=== PATIENT | female | born 1980 | race Caucasian/White ===

== ENCOUNTER 2018-01-23 08:27 | Day surgery (SDC) | payer OTHER ==
[~2018-01-23 08:27] MED LIST: Lactated Ringers 1,000 ML IV SCH; Lidocaine 1% 4 ML ONE; Lidocaine 1%/Sod Bicarbonate in NS 8.4% 1 ML Syringe IDERM PRN; Midazolam 1 MG/ML 2 ML SDV ONE; Propofol 200 MG/20 ML SDV ONE; Sodium Chloride 0.9% 10 ML Syringe FLUSH PRN; fentaNYL 100 MCG/2 ML SDV ONE
--- NOTE | 2018-01-23 09:18 | PCM.PREANE ---
Preanesthetic Assessment - Procedure Proposed Procedure: right Carpal tunnel release with left carpal tunnel injection - Anesthesia/Transfusion/Family Hx Anesthesia History: Prior Anesthesia Without Reaction Family History of Anesthesia Reaction: No Transfusion History: No Prior Transfusion(s) - Review of Systems General: No Symptoms Pulmonary: No Symptoms Cardiovascular: No Symptoms Gastrointestinal: No Symptoms Neurological: No Symptoms Other: Reports: None - Physical Assessment NPO Status Date: 01/22/18 NPO Status Time: 22:00 Pulse: 61 O2 Sat by Pulse Oximetry: 98 Respiratory Rate: 16 Blood Pressure: 124/84 Temperature: 97.4 F Height: 5 ft 6 in Weight: 90 kg ASA Class: 2 Mental Status: Alert & Oriented x3 Airway Class: Mallampati = 1 Dentition: Reports: Normal Dentition Thyro-Mental Finger Breadths: 3 Mouth Opening Finger Breadths: 3 ROM/Head Extension: Full Lungs: Clear to Auscultation, Normal Respiratory Effort Cardiovascular: Regular Rate, Regular Rhythm - Lab Values: Laboratory Last Values Urine HCG, Qual Negative (NEGATIVE) 01/23/18 08:33 MRSA (PCR) Negative 01/21/18 15:17 - Allergies Allergies/Adverse Reactions: Allergies Allergy/AdvReac Type Severity Reaction Status Date / Time varenicline [From Chantix] AdvReac Depression Verified 01/22/18 13:50 - Blood Blood Available: No - Acknowledgements Anesthesia Type Planned: MAC Pt an Appropriate Candidate for the Planned Anesthesia: Yes Alternatives and Risks of Anesthesia Discussed w Pt/Guardian: Yes Pt/Guardian Understands and Agrees with Anesthesia Plan: Yes PreAnesthesia Questionnaire HEENT History: Reports: Other (See Below) Other HEENT History: rhinorrhea Cardiovascular History: Reports: None Respiratory History: Reports: None Gastrointestinal History: Reports: None MICE RAISER History: Reports: None Musculoskeletal History: Reports: Other (See Below) Other Musculoskeletal History: thigh muscle strain, bilateral carpal tunnel syndrome Neurological History: Reports: None Psychiatric History: Reports: ADHD, Depression Endocrine/Metabolic History: Reports: None Hematologic History: Reports: None Immunologic History: Reports: None Oncologic (Cancer) History: Reports: None Dermatologic History: Reports: None - Past Surgical History Head Surgeries/Procedures: Reports: None Cardiovascular Surgical History: Reports: None Respiratory Surgical History: Reports: None GI Surgical History: Reports: Abdominal paracentesis Female Surgical History: Reports: Section, Tubal Ligation Male Surgical History: Reports: None Endocrine Surgical History: Reports: None Neurological Surgical History: Reports: None Musculoskeletal Surgical History: Reports: None Oncologic Surgical History: Reports: None - SUBSTANCE USE Smoking Status *Q: Former Smoker (quit 4 days ago) Tobacco Use Within Last Twelve Months: Cigarettes Second Hand Smoke Exposure: No Days Per Week of Alcohol Use: 0 (socially) Recreational Drug Use History: No - HOME MEDS Home Medications: Home Meds Dextroamphetamine/Amphetamine [Adderall 20 mg Tablet] 20 mg PO BID 01/22/18 [ History] Diazepam [Valium] 5 mg PO TID PRN 01/22/18 [History] Losartan/Hydrochlorothiazide [Hyzaar 100-12.5 Tablet] 1 tab PO DAILY 01/22/18 [ History] buPROPion [Wellbutrin SR] 150 mg PO BID 01/22/18 [History] traMADol HCl [Ultram] 50 - 100 mg PO Q6H PRN #15 tablet 01/23/18 [Rx] - CURRENT (IN HOUSE) MEDS Current Meds: Current Medications Lactated Ringer's (Ringers, Lactated) 1,000 mls @ 125 mls/hr IV ASDIRECTED SARAI Stop: 01/23/18 23:00 Lidocaine/Sodium Bicarbonate (Buffered Lidocaine 1% In Ns 8.4%) 0.25 ml IDERM ONETIME PRN PRN Reason: Prior to IV Start Stop: 01/23/18 18:00 Sodium Chloride (Saline Flush) 10 ml FLUSH ASDIRECTED PRN PRN Reason: Keep Vein Open Stop: 01/23/18 18:00 Discontinued Medications Fentanyl (Sublimaze) Confirm Administered Dose 100 mcg .ROUTE .STK-MED ONE Stop: 01/23/18 07:17 Lidocaine HCl (Xylocaine-Mpf 1%) Confirm Administered Dose 4 mls @ as directed .ROUTE .STK-MED ONE Stop: 01/23/18 07:17 Midazolam HCl (Versed 1 Mg/Ml) Confirm Administered Dose 2 mg .ROUTE .STK-MED ONE Stop: 01/23/18 07:18 Propofol (Diprivan 20 Ml) Confirm Administered Dose 200 mg .ROUTE .STK-MED ONE Stop: 01/23/18 07:17
[2018-01-23] MEDS ORDERED: Lidocaine 0.5% 50 ML SDV ONE (09:20)
[2018-01-23] MEDS ORDERED: Sodium Bicarbonate 8.4% 50 MEQ/50 ML SDV ONE (09:20)
[2018-01-23] MEDS ORDERED: Bupivacaine 0.25% 10 ML SDV ONE (09:47)
[2018-01-23] MEDS ORDERED: Triamcinolone Acetonide 40 MG/ML 1 ML MDV ONE (09:47)
[2018-01-23] MEDS ORDERED: Ketorolac 30 MG/ML SDV ONE (10:09)
--- NOTE | 2018-01-23 10:37 | PCM48HPAN ---
Post Anesthesia Note - EVALUATION WITHIN 48HRS OF ANESTHETIC Vital Signs in Normal Range: Yes Patient Participated in Evaluation: Yes Respiratory Function Stable: Yes Airway Patent: Yes Cardiovascular Function Stable: Yes Hydration Status Stable: Yes Pain Control Satisfactory: Yes Nausea and Vomiting Control Satisfactory: Yes Mental Status Recovered: Yes Pulse Rate: 62 SaO2: 97 Resp Rate: 16 Temperature: 97.4 F Blood Pressure: 116/72
--- NOTE | 2018-01-23 22:12 | PCM.OPNOTE ---
- General Post-Op/Procedure Note Date of Surgery/Procedure: 01/23/18 Operative Procedure(s): right carpal tunnel release with left carpal tunnel injection Pre Op Diagnosis: bilateral median nerve compression neuropathy Post-Op Diagnosis: Same Anesthesia Technique: Regional Block Primary Surgeon: Aleks Cross Anesthesia Provider: Meg Celestin Supervisory Civil Engineer: Ana De La O EBL in mLs: 5 Complications: None Condition: Good Free Text/Narrative:: Intake & Output 01/23/18 01/23/18 01/23/18 06:59 14:59 22:59 Intake Total 315 Balance 315
--- NOTE | 2018-01-23 23:03 | OR ---
DATE OF OPERATION: 01/23/2018 SURGEON: Aleks Cross MD OPERATION PERFORMED: Right carpal tunnel release with left carpal tunnel injection. PREOPERATIVE DIAGNOSIS: Bilateral median nerve compression neuropathy. POSTOPERATIVE DIAGNOSIS: Bilateral median nerve compression neuropathy. ANESTHESIA: Regional Jim block. ANESTHESIA PROVIDER: Meg Celestin CRNA SHAFT MECHANIC: Ishan ESTIMATED BLOOD LOSS: Less than 5 mL. COMPLICATIONS: None. CONDITION: Stable. DESCRIPTION OF PROCEDURE: The patient was identified in the preop holding area. Proper site was marked and identified by the surgeon. The patient was taken back to the operating theater, where after adequate anesthesia with the [place] block to the right upper extremity, the right upper extremity was sterilely prepped and draped in the usual sterile fashion. OR time-out was performed. The patient received 2 g of IV Ancef. At this time, incision was made using Meade's cardinal line in the ulnar border of the fourth digit. This was taken down to the palmar cutaneous fascia. Palmar cutaneous fascia was incised with a [place] blade. This was taken down to the transverse carpal ligament. With the use of a [place] blade, the transverse carpal ligament was incised. Then, tenotomy scissors were used to release all the way distally stopping short at the palmar arch. There was found to be adequate release. Attention was turned proximally. At this time, with the use of tenotomy scissors under direct visualization, the superficial forearm fascia as well as the transverse carpal ligament were released proximally under direct visualization making sure to keep the tips of the ulna to protect the palmar cutaneous branch of the median nerve. At this time, adequate saline was irrigated through the wound. 4-0 nylon simple suture was used for closure of the skin. The patient had a sterile soft dressing applied. At this time, under sterile technique, 1 mL of 40 mg Kenalog and 2 mL of 0.25% Marcaine were injected to the left carpal tunnel. The patient tolerated both procedures well and was sent to the PACU in stable condition. MMODAL /[id number]
== END 2018-01-23 11:16 | disposition home or self-care (01) ==
LOC: JD.SDS 08:27
PROVIDERS: ATTEND Orthopaedic Surgery
DX: G56.13 Other lesions of median nerve, bilateral upper limbs (principal); F32.9 Major depressive disorder, single episode, unspecified; F90.9 Attention-deficit hyperactivity disorder, unspecified type; Z79.899 Other long term (current) drug therapy; Z88.8 Allergy status to other drugs, medicaments and biological substances; Z87.891 Personal history of nicotine dependence
CPT/HCPCS: 81025; 87641; J1885; J2001; J2250; J2704; J3010; J3301; J7120

== ENCOUNTER 2018-02-20 06:17 | Day surgery (SDC) | payer OTHER ==
[~2018-02-20 06:17] MED LIST changes: -Lidocaine 1% 4 ML ONE; -Midazolam 1 MG/ML 2 ML SDV ONE; -Propofol 200 MG/20 ML SDV ONE; -fentaNYL 100 MCG/2 ML SDV ONE
[2018-02-20] MEDS ORDERED: fentaNYL 100 MCG/2 ML SDV ONE (06:37)
[2018-02-20] MEDS ORDERED: Midazolam 1 MG/ML 2 ML SDV ONE (06:37)
[2018-02-20] MEDS ORDERED: Propofol 200 MG/20 ML SDV ONE ×2 (06:37→07:27)
[2018-02-20] MEDS ORDERED: Ondansetron 4 MG/2 ML SDV ONE (06:40)
[2018-02-20] MEDS ORDERED: Lidocaine 1% 4 ML ONE (06:40)
[2018-02-20] MEDS ORDERED: Dexamethasone 4 MG/ML 5 ML MDV ONE (06:40)
[2018-02-20] MEDS ORDERED: Lidocaine 1% 30 ML SDV ONE (06:56)
[2018-02-20] MEDS ORDERED: Bupivacaine 0.25% 30 ML SDV ONE (06:56)
--- NOTE | 2018-02-20 06:56 | PCM.PREANE ---
Preanesthetic Assessment - Procedure Proposed Procedure: Left hand CTR - Anesthesia/Transfusion/Family Hx Anesthesia History: Prior Anesthesia Without Reaction Family History of Anesthesia Reaction: No Transfusion History: No Prior Transfusion(s) - Review of Systems General: No Symptoms Pulmonary: No Symptoms Cardiovascular: Other (HTN) Gastrointestinal: No Symptoms Neurological: Other (ADHD) Other: Reports: Depression, Anxiety - Physical Assessment NPO Status Date: 02/19/18 NPO Status Time: 23:30 O2 Sat by Pulse Oximetry: 95 Respiratory Rate: 18 Vital Signs: Last Vital Signs Temp 36.4 C 02/20/18 06:38 Pulse 81 02/20/18 06:38 Resp 18 02/20/18 06:38 BP 158/88 H 02/20/18 06:38 Pulse Ox 95 02/20/18 06:38 Height: 1.68 m Weight: 87.997 kg ASA Class: 2 Mental Status: Alert & Oriented x3 Airway Class: Mallampati = 1 Dentition: Reports: Normal Dentition Thyro-Mental Finger Breadths: 3 Mouth Opening Finger Breadths: 3 ROM/Head Extension: Full Lungs: Clear to Auscultation, Normal Respiratory Effort Cardiovascular: Regular Rate, Regular Rhythm - Allergies Allergies/Adverse Reactions: Allergies Allergy/AdvReac Type Severity Reaction Status Date / Time varenicline [From Chantix] AdvReac Depression Verified 02/19/18 10:05 - Blood Blood Available: No Product(s) Available: None - Anesthesia Plan Pre-Op Medication Ordered: None - Acknowledgements Anesthesia Type Planned: MAC Pt an Appropriate Candidate for the Planned Anesthesia: Yes Alternatives and Risks of Anesthesia Discussed w Pt/Guardian: Yes Pt/Guardian Understands and Agrees with Anesthesia Plan: Yes PreAnesthesia Questionnaire HEENT History: Reports: Other (See Below) Other HEENT History: rhinorrhea Cardiovascular History: Reports: None, Hypertension Respiratory History: Reports: None Gastrointestinal History: Reports: None Genitourinary History: Reports: None RN CLINICAL RESOURCE History: Reports: None Musculoskeletal History: Reports: Other (See Below) Other Musculoskeletal History: thigh muscle strain, bilateral carpal tunnel syndrome Neurological History: Reports: None Psychiatric History: Reports: ADHD, Depression Endocrine/Metabolic History: Reports: None Hematologic History: Reports: None Immunologic History: Reports: None Oncologic (Cancer) History: Reports: None Dermatologic History: Reports: None - Past Surgical History Head Surgeries/Procedures: Reports: None Cardiovascular Surgical History: Reports: None Respiratory Surgical History: Reports: None GI Surgical History: Reports: None Female Surgical History: Reports: Section, Tubal Ligation Male Surgical History: Reports: None Endocrine Surgical History: Reports: None Neurological Surgical History: Reports: None Musculoskeletal Surgical History: Reports: None, Carpal Tunnel Oncologic Surgical History: Reports: None - SUBSTANCE USE Smoking Status *Q: Former Smoker Recreational Drug Use History: No - HOME MEDS Home Medications: Home Meds Dextroamphetamine/Amphetamine [Adderall 20 mg Tablet] 20 mg PO BID 01/22/18 [ History] Losartan/Hydrochlorothiazide [Hyzaar 100-12.5 Tablet] 1 tab PO DAILY 01/22/18 [ History] buPROPion [Wellbutrin SR] 150 mg PO BID 01/22/18 [History] - CURRENT (IN HOUSE) MEDS Current Meds: Current Medications Lactated Ringer's (Ringers, Lactated) 1,000 mls @ 125 mls/hr IV ASDIRECTED SARAI Stop: 02/20/18 23:00 Last Admin: 02/20/18 06:46 Dose: 125 mls/hr Lidocaine/Sodium Bicarbonate (Buffered Lidocaine 1% In Ns 8.4%) 0.25 ml IDERM ONETIME PRN PRN Reason: Prior to IV Start Stop: 02/20/18 18:00 Last Admin: 02/20/18 06:46 Dose: 0.25 ml Sodium Chloride (Saline Flush) 10 ml FLUSH ASDIRECTED PRN PRN Reason: Keep Vein Open Stop: 02/20/18 18:00 Discontinued Medications Dexamethasone (Dexamethasone) Confirm Administered Dose 20 mg .ROUTE .STK-MED ONE Stop: 02/20/18 06:41 Fentanyl (Sublimaze) Confirm Administered Dose 100 mcg .ROUTE .STK-MED ONE Stop: 02/20/18 06:38 Lidocaine HCl (Xylocaine-Mpf 1%) Confirm Administered Dose 4 mls @ as directed .ROUTE .STK-MED ONE Stop: 02/20/18 06:41 Midazolam HCl (Versed 1 Mg/Ml) Confirm Administered Dose 2 mg .ROUTE .STK-MED ONE Stop: 02/20/18 06:38 Ondansetron HCl (Zofran) Confirm Administered Dose 4 mg .ROUTE .STK-MED ONE Stop: 02/20/18 06:41 Propofol (Diprivan 20 Ml) Confirm Administered Dose 200 mg .ROUTE .[facility] ONE Stop: 02/20/18 06:38
--- NOTE | 2018-02-20 07:56 | PCM48HPAN ---
Post Anesthesia Note - EVALUATION WITHIN 48HRS OF ANESTHETIC Vital Signs in Normal Range: Yes Patient Participated in Evaluation: Yes Respiratory Function Stable: Yes Airway Patent: Yes Cardiovascular Function Stable: Yes Hydration Status Stable: Yes Pain Control Satisfactory: Yes Nausea and Vomiting Control Satisfactory: Yes Mental Status Recovered: Yes Pulse Rate: 75 SaO2: 92 Resp Rate: 16 Temperature: 36.5 C Blood Pressure: 106/60
[2018-02-20] MEDS ORDERED: Ketorolac 30 MG/ML SDV ONE (08:21)
--- NOTE | 2018-03-06 11:56 | PCM.OPNOTE ---
- General Post-Op/Procedure Note Date of Surgery/Procedure: 02/20/18 Operative Procedure(s): left carpal tunnel release Pre Op Diagnosis: left median nerve compression neuropathy Post-Op Diagnosis: Same Anesthesia Technique: Local, MAC Primary Surgeon: Aleks rCoss Anesthesia Provider: Elias Alvarez EBClifton in mLs: 5 Complications: None Condition: Good
--- NOTE | 2018-03-10 09:12 | OR ---
DATE OF OPERATION: 02/20/2018 SURGEON: Aleks Cross MD OPERATION PERFORMED: Left carpal tunnel release. PREOPERATIVE DIAGNOSIS: Left median nerve compression neuropathy. POSTOPERATIVE DIAGNOSIS: Left median nerve compression neuropathy. ANESTHESIA: Local MAC. ANESTHESIA PROVIDER: Elias Alvarez. ESTIMATED BLOOD LOSS: Less than 5 mL. COMPLICATIONS: None. CONDITION: Stable. DESCRIPTION OF PROCEDURE: The patient was identified in the preop holding area. Proper site was marked and identified by the surgeon. The patient was taken back to the OR where after adequate anesthesia, the patient's left upper extremity was sterilely prepped and draped in the usual sterile fashion. OR time-out was performed. The patient did not receive antibiotics, not indicated for soft tissue hand procedure at this time. A 1% lidocaine without epinephrine and 0.25% Marcaine without epinephrine were used to anesthetize the palmar cutaneous branch of the median nerve as well as the incisional site using Meade's cardinal line and ulnar border of the fourth digit. At this time, once this had set up, incision was made, blunt dissection was taken down to the palmar cutaneous fascia. Palmar cutaneous fascia was incised with a [place] blade. Transverse carpal ligament was identified and a small rent was made with a [place] blade. [place] elevator was then placed and resection of the transverse carpal ligament was done all the way distally just stopping short of the palmar arch. At this time, attention was turned proximally with the use of tenotomy scissors keeping the tips ulnar to protect the palmar cutaneous branch of the median nerve. The superficial forearm fascia as well as the transverse carpal ligament were resected proximally. At this time, it was found to be resectable adequately both proximally and distally. Adequate saline was irrigated through the wound. A 4-0 nylon suture was used for closure of the skin. The patient had a sterile soft dressing applied and was sent to PACU in stable condition. MMODAL /[id number]
== END 2018-02-20 08:42 | disposition home or self-care (01) ==
LOC: JD.SDS 06:17
PROVIDERS: ATTEND Orthopaedic Surgery
DX: G56.02 Carpal tunnel syndrome, left upper limb (principal); F17.210 Nicotine dependence, cigarettes, uncomplicated; Z79.899 Other long term (current) drug therapy; I10 Essential (primary) hypertension; Z98.890 Other specified postprocedural states; Z88.8 Allergy status to other drugs, medicaments and biological substances
CPT/HCPCS: 64721; J1100; J1885; J2250; J2405; J2704; J3010; J3490; J7120; 01810; J2001

== ENCOUNTER 2021-10-20 08:06 | Emergency (ER) | payer OTHER ==
[2021-10-20] MEDS ORDERED: Morphine 4 MG/ML Syringe IVPUSH ONE (08:34)
[2021-10-20] MEDS ORDERED: Ondansetron 4 MG/2 ML SDV IVPUSH ONE (08:34)
[2021-10-20] MEDS ORDERED: Lactated Ringers 1,000 ML IV ONE (08:34)
== END 2021-10-20 10:06 | disposition home or self-care (01) ==
LOC: JD.ED 08:06
DX: R10.30 Lower abdominal pain, unspecified (principal); I10 Essential (primary) hypertension; Z79.899 Other long term (current) drug therapy; Z86.16 Personal history of COVID-19; Z88.8 Allergy status to other drugs, medicaments and biological substances
CPT/HCPCS: 36415; 80053; 83690; 85025; 96374; 96375; 99284; J2270; J2405; J7120